=== PATIENT | female | born 1945 | race Caucasian/White ===

== ENCOUNTER 2024-03-20 09:52 | Emergency (ER) | payer MEDICARE, BC ==
[~2024-03-20] VITALS: Ht 170.2 cm; Wt 65.8 kg
[~2024-03-20 09:52] MED LIST: ATOR20TA PO; ESCI10TA PO; LEVO50TA PO
[2024-03-20] MEDS: TDAP [DIPH/PERTUSSIS/TET] 0.5 ML VIAL IM ONE (10:58)
[2024-03-20 11:59] VITALS: BP 131/71; TEMP 97.9; O2SAT 98
== END 2024-03-20 11:59 | disposition home or self-care (01) ==
LOC: ER 09:52
DX: S61.411A Laceration without foreign body of right hand, initial encounter (principal); S40.012A Contusion of left shoulder, initial encounter; S80.01XA Contusion of right knee, initial encounter; E78.00 Pure hypercholesterolemia, unspecified; Z88.0 Allergy status to penicillin; Z91.040 Latex allergy status; Z88.2 Allergy status to sulfonamides; W06.XXXA Fall from bed, initial encounter; Y93.89 Activity, other specified; Y92.89 Other specified places as the place of occurrence of the external cause; Y99.8 Other external cause status
CPT/HCPCS: 73030-TC; 73130-TC; 73564-TC